=== PATIENT | female | born 1980 | race Caucasian/White ===

== ENCOUNTER 2023-12-07 23:10 | Emergency (ER) | payer MEDICAID, OTHER ==
[~2023-12-07] VITALS: Ht 160 cm; Wt 77.7 kg
[2023-12-07 23:14] VITALS: BP 141/90; PULSE 72; RESP 18; TEMP 98.8; O2SAT 99
[2023-12-08] MEDS: PERTUSS(ACELL),DIPH,TET/PF 0.5 ML SYRINGE [ADULT] IM. ONE (01:15)
== END 2023-12-08 01:23 | disposition home or self-care (01) ==
LOC: EMS 23:10
DX: S01.21XA Laceration without foreign body of nose, initial encounter (principal); W26.8XXA Contact with other sharp object(s), not elsewhere classified, initial encounter; Y93.89 Activity, other specified; Y92.89 Other specified places as the place of occurrence of the external cause; Y99.8 Other external cause status
CPT/HCPCS: 12011; 90471; 90715; 99283